=== PATIENT | female | born 1970 | race Caucasian/White ===

== ENCOUNTER 2020-09-28 04:02 | Emergency (ER) | payer BC ==
[2020-09-28] MEDS ORDERED: Alum Hydrox/Mag Hydrox/Simeth 30 ML, Lidocaine 2% 15 ML PO STA ×2 (04:16)
--- NOTE | 2020-09-28 04:28 | EDM.PDOC ---
ED HPI GENERAL MEDICAL PROBLEM - General Chief Complaint: Abdominal Pain Stated Complaint: ABDOMINAL PAIN Time Seen by Provider: 09/28/20 04:13 Source of Information: Reports: Patient History Limitations: Reports: No Limitations - History of Present Illness INITIAL COMMENTS - FREE TEXT/NARRATIVE: Mrs. Christine is a pleasant 50-year-old woman who now presents to the ED after being woken up around 02:45 this morning with epigastric pain. She describes the character of the pain as a pressure sensation, and states that it is constant. It does not radiate. She states that she feels better if she raises her arms up above her head, worse if she lies supine. No associated symptoms of nausea, vomiting, constipation, diarrhea, or urinary symptoms. The patient states that she had virtually identical symptoms under the same circumstances about 6 months ago. She did not seek medical attention at that time. She states that her symptoms resolved after several hours. The patient did not take any [id number] or home remedies prior to coming to the ED. Here in the ED, the patient is found to be hemodynamically stable, afebrile, saturating 98% on room air. Prior to this morning, the patient denies having a recent fever, chills, sore throat, ear pain, nasal or sinus congestion, cough, dyspnea, chest pain, palpitations, nausea, vomiting, constipation, diarrhea, abdominal pain, urinary symptoms, recent weight gain or weight loss, recent bloody bowel movements or black bowel movements, recent joint aches, headaches, or rashes. The patient does not have a PCP. She did not receive an influenza vaccine this season, and declined an offer to get one here in the ED. Middle Abdominal Pain Score (Numeric/FACES): 6 - Related Data Allergies Allergy/AdvReac Type Severity Reaction Status Date / Time Penicillins Allergy Severe Hives Verified 09/28/20 04:12 Home Meds: Home Meds . 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 ED EXAM, GI/ABD - Physical Exam Exam: See Below Exam Limited By: No Limitations General Appearance: Alert, WD/WN, No Apparent Distress Eyes: Bilateral: Normal Appearance, EOMI Ears: Normal External Exam, Hearing Grossly Normal Nose: Normal Inspection Throat/Mouth: Normal Inspection, Normal Lips, Normal Voice, No Airway Compromise Head: Atraumatic, Normocephalic Neck: Normal Inspection, Full Range of Motion Respiratory/Chest: No Respiratory Distress, Lungs Clear, Normal Breath Sounds, No Accessory Muscle Use Cardiovascular: Normal Peripheral Pulses, Regular Rate, Rhythm, No Edema, No Gallop, No JVD, No Murmur, No Rub GI/Abdominal Exam: Normal Bowel Sounds, Soft, Non-Tender (including the epigastrium), No Organomegaly, No Distention, No Abnormal Bruit, No Mass Back Exam: Normal Inspection, Full Range of Motion. No: CVA Tenderness (L), CVA Tenderness (R) Extremities: Normal Inspection, Normal Range of Motion, No Pedal Edema, Normal Capillary Refill Neurological: Alert, Oriented, Normal Cognition, No Motor/Sensory Deficits Psychiatric: Normal Affect Skin Exam: Warm, Dry, Intact, Normal Color, No Rash Course - Vital Signs Last Recorded V/S: Last Vital Signs Temp 37.1 C 09/28/20 04:10 Pulse 76 09/28/20 04:10 Resp 16 09/28/20 04:10 BP 125/85 09/28/20 04:10 Pulse Ox 98 09/28/20 04:10 - Orders/Labs/Meds Meds: Medications Discontinued Medications Generic Name Dose Route Start Last Admin Trade Name Freq PRN Reason Stop Dose Admin Al Hydroxide/Mg Hydroxide 30 0 ml 09/28/20 04:16 09/28/20 04:23 ml/ Lidocaine HCl 15 ml PO 09/28/20 04:17 45 ml ONETIME STA Administration - Re-Assessments/Exams Free Text/Narrative Re-Assessment/Exam: 09/28/20 04:23 As above, the patient was woken with epigastric pain around 2:45 this morning, which has persisted, made better if she raises her arms, worse if she lies back down. Her physical exam, including out of her abdomen, is grossly unremarkable, with no significant tenderness. Her history and physical examination are highly suspicious for GERD. She has been given a GI cocktail to see if that has any effect. 09/28/20 04:34 The patient states that following the GI cocktail, she has significant im provement in her symptoms. This is convincing for GERD. She will be given 40 mg of oral famotidine here in the ED, after which she can be discharged home. I will recommend that she take 1 tablet of OTC famotidine twice a day for 7 days, followed by 1 tablet once a day. If her symptoms return, she will need to increase the dose to 1 tablet twice a day, and if her symptoms persist, she may need to switch to a PPI, however, under the circumstances, I would recommend that she undergo an EGD. The patient expressed understanding. Departure - Departure Time of Disposition: 04:36 Disposition: Home, Self-Care 01 Condition: Good Clinical Impression: GERD (gastroesophageal reflux disease) - Discharge Information *PRESCRIPTION DRUG MONITORING PROGRAM REVIEWED*: Not Applicable *COPY OF PRESCRIPTION DRUG MONITORING REPORT IN PATIENT SANGEETHA: Not Applicable Referrals: PCP,None [Primary Care Provider] - Additional Instructions: You were seen in the emergency room after waking up with upper midline abdominal pain. Based on your history and physical examination, your symptoms are most likely due to GERD. You have been started on the H2 maría famotidine. Famotidine is available [id number], and generic famotidine is just as good as name-brand Pepcid. We recommend that you take 1 tablet of famotidine twice a day for 7 days, then 1 tablet once a day thereafter. If your symptoms return, you should increase your dosage to 1 tablet twice a day, and if your symptoms persist despite taking 1 tablet twice a day, you may need to switch to a stronger medicine known as a proton pump inhibitor (PPI), however, under those circumstances, we would recommend that you undergo an EGD (scope of your stomach). If any other problems, please do not hesitate to return to the ER. Sepsis Event Note (ED) - Evaluation Sepsis Screening Result: No Definite Risk - Focused Exam Vital Signs: Vital Signs Temp Pulse Resp BP Pulse Ox 09/28/20 04:10 37.1 C 76 16 125/85 98
[2020-09-28] MEDS ORDERED: Famotidine 20 MG Tab PO STA (04:34)
== END 2020-09-28 04:41 | disposition home or self-care (01) ==
LOC: JD.ED 04:02
DX: K21.9 Gastro-esophageal reflux disease without esophagitis (principal); Z88.0 Allergy status to penicillin
CPT/HCPCS: 99283; A9270